=== PATIENT | male | born 1990 | race African-American/Black ===

== ENCOUNTER 2018-03-17 09:29 | Emergency (ER) | payer SELFPAY ==
[~2018-03-17] VITALS: Ht 170.2 cm; Wt 71.0 kg
[~2018-03-17 09:29] MED LIST: IBUP800T23 PO; LORTA5 PO
[2018-03-17 09:31] VITALS: BP 141/63; PULSE 85; RESP 20; TEMP 98.7; O2SAT 95
--- NOTE | 2018-03-17 09:56 | PD ---
HPI Chief Complaint: Injury Time Seen by Provider: 09:48 Travel History International Travel<30 days: No Contact w/Intl Traveler<30days: No Traveled to known affect area: No History of Present Illness HPI 27-year-old male who is right-handed, presents emergency department for evaluation of right hand injury sustained when he closed his right hand in a door yesterday. Patient states he is unable to go to work today due to the pain. Pain is a 10 out of 10, constant, throbbing in his right hand. He has also noticed increased swelling. Denies any limitations in range of motion or alterations in sensation. Patient has no other symptoms to report. PFSH Past Medical History Medical History: Denies Significant Hx Immunizations Current: Yes Tetanus Vaccination: Unknown Past Surgical History Surgical History: No Previous Surgery Social History Alcohol Use: No Tobacco Use: Yes Substance Use: No Allergies-Medications (Allergen,Severity, Reaction): Coded Allergies: No Known Allergies (Unverified , 02/22/14) Reported Meds & Prescriptions Reported Meds & Active Scripts Active Ibuprofen 800 Mg Tab 800 Mg PO Q8H PRN Review of Systems Except as stated in HPI: all other systems reviewed are Neg Physical Exam Narrative GENERAL: Well-nourished, well-developed male patient in no acute distress SKIN: Focused skin assessment warm/dry. HEAD: Normocephalic. EYES: No scleral icterus. No injection or drainage. NECK: Supple, trachea midline. No JVD or lymphadenopathy. CARDIOVASCULAR: Regular rate and rhythm without murmurs, gallops, or rubs. RESPIRATORY: Breath sounds equal bilaterally. No accessory muscle use. MUSCULOSKELETAL: No cyanosis. edema on the dorsal aspect of the right hand. No obvious deformity. Patient can flex and extend all the digits of the right hand. Sensation intact. Cap refill within normal limits. BACK: Nontender without obvious deformity. No CVA tenderness. Data Data Last Documented VS Vital Signs Date Time Temp Pulse Resp B/P (MAP) Pulse Ox O2 Delivery O2 Flow Rate FiO2 03/17/18 09:31 98.7 85 20 141/63 (89) 95 Orders Orders Hand, Complete ([id number]) (03/17/18 ) Isaac Bandage (03/17/18 10:54) Ed Discharge Order (03/17/18 10:55) MDM Medical Decision Making Medical Screen Exam Complete: Yes Emergency Medical Condition: Yes Medical Record Reviewed: Yes Differential Diagnosis Contusion versus fracture versus sprain versus dislocation Narrative Course 27-year-old male presents emergency department for evaluation right hand injury. Patient appears without distress. He does have edema on the dorsal aspect right hand. The extremity remains neurovascularly intact. Last Impressions Hand X-Ray 03/17/18 0000 Signed Impressions: CONCLUSION: No evidence of recent bony injury. Siaac wrap is applied. Patient is counseled on care. He is encouraged to return immediately with acute worsening symptoms. Diagnosis Primary Impression: Hand contusion Qualified Codes: S60.221A - Contusion of right hand, initial encounter Referrals: Hand Surgeon Primary Care Physician Patient Instructions: Contusion in Adults (ED), General Instructions Additional Instructions: Isaac wrap for compression and support Ice and elevate to reduce pain and swelling Follow-up with a primary care provider Return immediately with acute worsening symptoms Med/Other Pt SpecificInfo: Prescription(s) given Scripts Ibuprofen (Ibuprofen) 800 Mg Tab 800 MG PO Q8H Y for Pain/Inflammation, #30 TAB 0 Refills Prov: Arlet Amaral 03/17/18 Disposition: 01 DISCHARGE HOME Condition: Stable Arlet Amaral Mar 17, 2018 09:56
--- NOTE | 2018-03-17 10:29 | RADRPT ---
EXAM DATE: 03/17/2018 10:15 AM EDT AGE/SEX: 27 years / Male INDICATIONS: Right hand pain. Patient slammed hand in a door yesterday. Pain in the 5th metacarpale. CLINICAL DATA: This is the patient's initial encounter. Patient reports that signs and symptoms have been present for 2 days and indicates a pain score of 6/10. MEDICAL/SURGICAL HISTORY: . Prior fractures to right hand. None. COMPARISON: No prior exams available for comparison. FINDINGS: The bone density is normal. Soft tissues are unremarkable. There are remote appearing fracture deform ities of the base of the fourth and fifth metacarpals. No definite evidence for acute fracture. CONCLUSION: No evidence of recent bony injury. Electronically signed by: Harpal Bay MD 03/17/2018 10:28 AM EDT
[2018-03-17] MEDS ORDERED: IBUP1TAB7 PO (10:56)
== END 2018-03-17 11:04 | disposition home or self-care (01) ==
LOC: NEPD 09:29
DX: S60.221A Contusion of right hand, initial encounter (principal); W23.0XXA Caught, crushed, jammed, or pinched between moving objects, initial encounter; Z72.0 Tobacco use
CPT/HCPCS: 73130; 99283